=== PATIENT | male | born 1950 | race Caucasian/White ===

== ENCOUNTER 2018-09-01 16:22 | Emergency (ER) | payer BC ==
--- NOTE | 2018-09-01 16:31 | PDOC ---
History of Present Illness - General Chief Complaint: Edema Stated Complaint: SWELLING TO LEFT SIDE OF FACE Time Seen by Provider: 09/01/18 16:25 History Source: Patient Exam Limitations: No Limitations - History of Present Illness Initial Comments: 09/01/18 16:30 68 y/o male with left facial swelling today. Has had a recent cold. Denies headache, sore throat, fever or chills. No SOB or chest pain. Denies cough. No fall or trauma. No ear pain. Past History - Past Medical History Allergies/Adverse Reactions: Allergies Allergy/AdvReac Type Severity Reaction Status Date / Time No Known Allergies Allergy Unverified 09/01/18 16:24 Home Medications: Ambulatory Orders Amox-Tr/K Cl [Augmentin - 875Mg Tablet] 1 tab PO BID #14 tablet 09/01/18 Montelukast Sodium [Singulair] 10 mg PO DAILY 09/01/18 Review of Systems - Review of Systems Able to Perform ROS?: Yes Is the patient limited Syriac proficient: No Constitutional: No: Chills, Fever HEENTM: No: Nose Congestion, Throat Swelling, Difficulty Swallowing, Mouth Swelling Respiratory: No: Cough, Orthopnea, Shortness of Breath Cardiac (ROS): No: Chest Pain ABD/GI: No: Nausea, Vomiting Musculoskeletal: No: Joint Stiffness Neurological: No: Headache All Other Systems: Reviewed and Negative *Physical Exam - Physical Exam General Appearance: Yes: Nourished, Appropriately Dressed. No: Apparent Distress HEENT: positive: EOMI, JOE, Normal Voice, Symmetrical, Pharynx Normal. negative: Normal ENT Inspection (swelling to left lower jaw, non tender, no fluctuance no redness no tenderness, enlarged submandibular lymph node left side ), Tonsillar Exudate, Tonsillar Erythema, Nasal Congestion, Rhinorrhea, Sinus Tenderness Neck: positive: Trachea midline, Normal Thyroid, Supple. negative: Tender, Rigid, Carotid bruit Respiratory/Chest: positive: Lungs Clear, Normal Breath Sounds. negative: Chest Tender, Respiratory Distress Cardiovascular: positive: Regular Rhythm, Regular Rate, S1, S2. negative: Edema , JVD, Murmur Vascular Pulses: Femoral (R): 4+, Femoral (L): 4+, Carotid (R): 4+, Carotid (L) : 4+, Dorsalis-Pedis (R): 4+, Doralis-Pedis (L): 4+ Gastrointestinal/Abdominal: positive: Normal Bowel Sounds, Flat, Soft, Decreased BS. negative: Tender, Organomegaly, Pulsatile Mass Lymphatic: positive: Adenopathy (left side). negative: Tenderness, Other Musculoskeletal: positive: Normal Inspection. negative: CVA Tenderness Extremity: positive: Normal Capillary Refill, Normal Inspection, Normal Range of Motion Integumentary: positive: Normal Color, Dry, Warm Neurologic: positive: product planner II-XII NML intact, Fully Oriented, Alert, Normal Mood/ Affect, Normal Response, Motor Strength / ED Treatment Course - ADDITIONAL ORDERS Additional order review: 09/01/18 16:43 enlarged lymph node consistent with parotitis Will treat with lemon drops and Augmentin No abscess seen If worsen will need CT face/neck Patient is in agreement with plan *DC/Admit/Observation/Transfer Diagnosis at time of Disposition: Parotitis - Discharge Dispostion Disposition: HOME Condition at time of disposition: Stable Decision to Admit order: No - Referrals - Patient Instructions Printed Discharge Instructions: DI for Parotitis-Adult Additional Instructions: Motrin, rest, fluids Augmentin 875 mg 2x/day for 7 days Lemon drops If worsen return to ER for CT face/neck - Post Discharge Activity
[2018-09-01 16:38] VITALS: TEMP 98.4; BMI 26.6
[2018-09-01 16:52] VITALS: BP 142/101; PULSE 92
== END 2018-09-01 17:11 | disposition home or self-care (01) ==
LOC: FER 16:22
DX: K11.20 Sialoadenitis, unspecified (principal)
CPT/HCPCS: 99281-25